=== PATIENT | male | born 1970 | race Caucasian/White ===

== ENCOUNTER → 2019-02-24 | Outpatient (CLI) | payer OTHER ==
[~2019-02-24] MED LIST: HYDR-3240 PO; LISI-167 PO; METF500T17 PO; PRAV20TA2 PO; PYRI60TA PO
[2019-02-24 16:01] LABS: ALANINE AMINOTRANSFERASE 24 U/L (12-78); ALBUMIN 3.8 g/dL (3.4-5.0); ANION GAP 5 mmol/L (5-15); CALCIUM 9.3 mg/dL (8.5-10.1); CHLORIDE 108 mmol/L (98-107); CREATININE 1.11 mg/dL (0.7-1.3)
[2019-02-24 16:03] LABS: ALKALINE PHOSPHATASE 165 U/L (45-117); BILIRUBIN,TOTAL 0.5 mg/dL (0.2-1.0); TOTAL PROTEIN 7.7 g/dL (6.4-8.2)
== END | disposition home or self-care (01) ==
LOC: STAR 14:44
PROVIDERS: ATTEND Thoracic Surgery (Cardiothoracic Vascular Surgery)
DX: Z01.818 Encounter for other preprocedural examination (principal); E32.8 Other diseases of thymus
CPT/HCPCS: 36415; 80053; 93005

== ENCOUNTER 2019-02-28 10:59 | Inpatient (IN) | payer OTHER ==
[~2019-02-28] VITALS: Ht 190.5 cm; Wt 132.4 kg
[~2019-02-28 10:59] MED LIST changes: +BUPIVACAINE/PF 0.5% ONE; +EPINEPHRINE 1 MG/ML, 1ML ONE; -HYDR-3240 PO
[2019-02-28] MEDS ORDERED: LACTATED RINGERS 1,000 ML IV SCH (11:12)
[2019-02-28] MEDS ORDERED: GABAPENTIN 300 MG CAPSULE PO ONE (11:30)
[2019-02-28] MEDS ORDERED: ACETAMINOPHEN 500 MG TABLET PO ONE (11:30)
[2019-02-28] MEDS ORDERED: FENTANYL PF 250 MCG/5ML ONE ×3 (12:15→14:50)
[2019-02-28] MEDS ORDERED: ROCURONIUM 10MG/ML,5ML ONE ×2 (12:16→14:22)
[2019-02-28] MEDS ORDERED: CEFAZOLIN 1,000 MG ONE ×2 (12:16→14:14)
[2019-02-28] MEDS ORDERED: NEOSTIGMINE 1 MG/ML, 10ML ONE (12:16)
[2019-02-28] MEDS ORDERED: GLYCOPYRROLATE 0.2MG/1ML, 5ML ONE (12:16)
[2019-02-28] MEDS ORDERED: PROPOFOL 10 MG/ML, 20ML ONE (12:16)
[2019-02-28] MEDS ORDERED: FENTANYL PF 100 MCG/2ML IV PRN (12:30)
[2019-02-28] MEDS ORDERED: HYDROmorphone 2 MG/ML, 1ML IVPush PRN (12:30)
[2019-02-28] MEDS ORDERED: ONDANSETRON 2MG/ML, 2ML IV PRN (12:30)
[2019-02-28] MEDS ORDERED: MORPHINE SULFATE 4 MG/ML, 1ML IVPush PRN (12:30)
[2019-02-28] MEDS ORDERED: OXYcodone 5 MG/5 ML ORAL.SOL UDC PO PRN (12:30)
[2019-02-28] MEDS ORDERED: MEPERIDINE/PF 25MG/ML,1ML IVPush PRN (12:30)
[2019-02-28] MEDS ORDERED: FLU VACC QS2019-20 36MOS UP/PF 0.5 ML IM-VACC ONE (13:00)
[2019-02-28] MEDS ORDERED: SUGAMMADEX 200 MG/2 ML IVPush ONE ×2 (14:32→14:48)
[2019-02-28] MEDS ORDERED: morphine SULFATE 10 MG/ML, 1ML IV PRN (16:30)
[2019-02-28] MEDS ORDERED: ENALAPRILAT 1.25 MG/ML, 2ML IV PRN (16:30)
[2019-02-28] MEDS ORDERED: DIPHENHYDRAMINE 25 MG CAPSULE PO PRN (16:30)
[2019-02-28] MEDS ORDERED: hydrALAzine 20 MG/ML, 1ML IV PRN (16:30)
[2019-02-28] MEDS ORDERED: LORazepam 0.5MG TABLET PO PRN (16:30)
[2019-02-28] MEDS ORDERED: ONDANSETRON 2MG/ML, 2ML IVPush PRN (16:30)
[2019-02-28] MEDS ORDERED: PROMETHAZINE 25 MG/ML, 1ML IM PRN (16:30)
[2019-02-28] MEDS ORDERED: PROMETHAZINE 12.5 MG SUPP PR PRN (16:30)
[2019-02-28] MEDS ORDERED: PYRIDOSTIGMINE 60 MG TABLET PO PRN (16:30)
[2019-02-28] MEDS ORDERED: LORazepam 2 MG/ML, 1ML IV PRN (16:30)
[2019-02-28] MEDS ORDERED: DIPHENHYDRAMINE 50 MG/ML, 1ML IV PRN (16:30)
[2019-02-28] MEDS ORDERED: hydrALAzine 20 MG/ML, 1ML ONE (16:34)
[2019-02-28] MEDS: LABETALOL 5MG/ML, 20ML IV PRN ×2 (16:34→16:40)
[2019-02-28] MEDS: hydrALAzine 20 MG/ML, 1ML IV PRN ×2 (16:43→17:10)
[2019-02-28] MEDS ORDERED: OXYcodone 5 MG/5 ML ORAL.SOL UDC ONE (16:59)
[2019-02-28] MEDS: LACTATED RINGERS 1,000 ML IV SCH (17:54)
[2019-02-28] MEDS ORDERED: ENOXAPARIN 40 MG/0.4 ML SQ SCH (18:00)
[2019-02-28] MEDS: metFORMIN 500 MG TABLET PO SCH (18:04)
[2019-02-28 18:19] VITALS: BP 153/88
[2019-02-28] MEDS ORDERED: LISINOPRIL 10 MG TABLET PO SCH (21:00)
[2019-02-28] MEDS: FAMOTIDINE 20 MG/2 ML IV SCH (21:00)
[2019-02-28] MEDS: INSULIN REGULAR 100 UNITS/ML, 3ML VIAL SQ-INSULIN SCH (21:10)
[2019-02-28 23:56] VITALS: BP 115/68
[2019-03-01] MEDS: HYDROcodone/APAP 5/325 TABLET PO PRN ×2 (02:40→08:29)
[2019-03-01] MEDS: LACTATED RINGERS 1,000 ML IV SCH ×2 (02:41→07:26)
[2019-03-01 04:01] VITALS: BP 103/65
[2019-03-01 05:16] LABS: BASOPHILS # (AUTO) 0.17 x10^3/uL (0-0.1); BASOPHILS % (AUTO) 1 % (0-1); EOSINOPHILS # (AUTO) 0.19 x10^3/uL (0-0.4); EOSINOPHILS % (AUTO) 2 % (1-7); LYMPHOCYTES # (AUTO) 1.76 x10^3/uL (1-3.4); LYMPHOCYTES % (AUTO) 15 % (22-44); MD NO; MEAN CORPUSCULAR HEMOGLOBIN 30.4 pg (27.5-34.5); MEAN CORPUSCULAR HGB CONC 33.5 g/dL (33.2-36.2); MEAN CORPUSCULAR VOLUME 90.7 fL (81-97); MEAN PLATELET VOLUME 9.8 fL (7.4-10.4); MONOCYTES # (AUTO) 1.02 x10^3/uL (0.2-0.8); MONOCYTES % (AUTO) 9 % (2-9); NEUTROPHILS # (AUTO) 8.91 x10^3/uL (1.8-6.8); NEUTROPHILS % (AUTO) 74 % (42-75); PLATELET COUNT 165 x10^3/uL (130-400); RED BLOOD COUNT 4.54 x10^6/uL (4.38-5.82); RED CELL DISTRIBUTION WIDTH 13.9 % (9.4-14.8)
[2019-03-01 05:26] LABS: ANION GAP 8 mmol/L (5-15); CALCIUM 8.1 mg/dL (8.5-10.1); CHLORIDE 107 mmol/L (98-107)
[2019-03-01 05:28] LABS: CREATININE 1.11 mg/dL (0.7-1.3)
[2019-03-01 07:15] VITALS: BP 122/74
[2019-03-01] MEDS: metFORMIN 500 MG TABLET PO SCH (08:29)
[2019-03-01] MEDS: FAMOTIDINE 20 MG/2 ML IV SCH (08:29)
[2019-03-01] MEDS: INSULIN REGULAR 100 UNITS/ML, 3ML VIAL SQ-INSULIN SCH (08:30)
[2019-03-01] MEDS ORDERED: LISINOPRIL 10 MG TABLET PO SCH (09:00)
[2019-03-01] MEDS ORDERED: FLU VACC QS2019-20 36MOS UP/PF 0.5 ML IM-VACC ONE (09:30)
[2019-03-01] MEDS ORDERED: HYDR-3240 PO (09:41)
[2019-03-01 10:15] VITALS: BP 133/83
[2019-03-01] MEDS ORDERED: ENOXAPARIN 40 MG/0.4 ML SQ SCH (14:00)
== END 2019-03-01 10:55 | disposition home or self-care (01) | DRG 41 ==
LOC: ORIP 10:59 → 4NE 17:35 → DCLOUNGE 03-01 10:49
PROVIDERS: ADMIT Thoracic Surgery (Cardiothoracic Vascular Surgery); ATTEND Thoracic Surgery (Cardiothoracic Vascular Surgery)
PROC: 8E094CZ Robotic Assisted Procedure of Head and Neck Region, Percutaneous Endoscopic Approach (ICD-10-PCS; 2019-02-28)
PROC: 03HY32Z Insertion of Monitoring Device into Upper Artery, Percutaneous Approach (ICD-10-PCS; 2019-02-28)
PROC: 07TM4ZZ Resection of Thymus, Percutaneous Endoscopic Approach (ICD-10-PCS; principal; 2019-02-28 13:30)
DX: G70.00 Myasthenia gravis without (acute) exacerbation (principal); J98.11 Atelectasis; I10 Essential (primary) hypertension; E11.9 Type 2 diabetes mellitus without complications; E78.5 Hyperlipidemia, unspecified; Z90.49 Acquired absence of other specified parts of digestive tract; Z90.89 Acquired absence of other organs; Z79.84 Long term (current) use of oral hypoglycemic drugs; Z79.899 Other long term (current) drug therapy; Z82.49 Family history of ischemic heart disease and other diseases of the circulatory system; Z87.891 Personal history of nicotine dependence
CPT/HCPCS: 36415; J3490; S0020; 71045; 80048; 82962; 85025; 86850; 86900; 88304; 88307; 90686; C1729; G0378; J0171; J0690; J1815; J2704; J2710; J3010; J0360; J7120